=== PATIENT | female | born 1980 | race Caucasian/White ===

== ENCOUNTER 2018-02-09 08:36 | Emergency (ER) | payer MEDICAID, SELFPAY ==
[2018-02-09 08:37] VITALS: BP 152/103; PULSE 74; RESP 16; TEMP 36.6; O2SAT 97; BMI 35.4
--- NOTE | 2018-02-09 08:49 | CT_ITS ---
STUDY: CT ABDOMEN AND PELVIS WITHOUT CONTRAST REASON FOR EXAM: Female, 37 years old. Bilateral flank pain. RADIATION DOSAGE (If Supplied By Facility): CTDIvol = ( 20.12 ) mGy, DLP = ( 1055.41 ) mGycm TECHNIQUE: Transaxial images were obtained from the dome of the diaphragm to the symphysis pubis without oral contrast, and without intravenous contrast. Sagittal and coronal images were reconstructed. Individualized dose optimization techniques were used for this CT. COMPARISON: Comparison is made with prior study dated July 05, 2017. FINDINGS: The visualized lung bases are unremarkable. The visualized portions of the heart are within normal limits. Stable 2.6 cm hypodensity in the peripheral aspect of the inferior portion of the right lobe of the liver. There are surgical clips in the gallbladder fossa consistent with a prior cholecystectomy. Normal spleen. Normal pancreas. Normal bilateral adrenal glands. Once again, there is evidence of bilateral medullary nephrocalcinosis of both kidneys. No obstructive uropathy is seen. Normal visualized stomach. Normal small intestine. Normal colon. The appendix is visualized and appears normal. Normal abdominal aorta. Normal inferior vena cava. Normal retroperitoneum. Normal urinary bladder. There is evidence of bilateral tubal ligation. Normal abdominal wall. Disc space narrowing and degeneration at the L5-S1 level. CT/Abdomen/Pelvis without Cont IMPRESSION: Stable bilateral medullary nephrocalcinosis of both kidneys. No obstructive uropathy is seen at this time. Electronically Signed: Vu Angeles MD at 11:25 EDT Tel [phone], Service support ,
[2018-02-09 09:29] LABS: Absolute Lymphocyte Count 0.74 X10^3/ul (0.83-4.51); Absolute Neutrophil Count 1.9 X10^3/uL (2.0-7.7); Basophil# 0.02 X10^3/uL; Basophil% 0.7 % (0-1); Eosinophil# 0.02 X10^3/uL; Eosinophils% 0.7 % (0-5); Hemoglobin 14.1 g/dl (12.0-15.0); Lymphocyte # 0.74 X10^3/ul (4.0); Lymphocyte % 25.3 % (19-41); Mean Corp Hgb Conc 34.4 g/gl (32-36); Mean Corpuscular Hgb 29.6 pg (27.0-32.0); Mean Platelet Vol. 9.5 fl (6.2-12.0); Monocyte# 0.26 X10^3/uL; Monocyte% 8.9 % (0-10); Neutrophil # 1.88 X10^3/uL (2.7-7.7); Neutrophil % 64.4 % (47-70); POSITIVE COUNT NO; POSITIVE DIFFERENTIAL NO; POSITIVE MORPHOLOGY NO; Platelet Count 187 K/mm3 (150-450); RBC Distribution Width CV 12.5 % (11.6-14.6); RBC Distribution Width SD 39.7 fl (35.1-43.9); Red Blood Count 4.77 M/mm3 (4.2-5.4); White Blood Count 2.9 K/mm3 (4.4-11.0)
[2018-02-09] MEDS: 0.9% Normal Saline 1,000 ML 125 ML IV (09:29)
[2018-02-09] MEDS: Ketorolac 30 MG/ML Syringe IV (09:30)
[2018-02-09 09:40] LABS: Anion Gap 6 (5-15); BUN 12 mg/dL (7-18); BUN/Creat Ratio 14.5 RATIO (10-20); Calcium,Total 8.9 mg/dL (8.5-10.1); Chloride 107 mmol/L (98-107); Creatinine, Serum 0.83 mg/dL (0.55-1.02); EST Glomerular Filtration Rate 83 mL/min (>60); Est Glom Filt Rate - Afr Amer 101 mL/min (>60); Estimated Creatinine Clearance 74.82 ml/min; Glucose 98 mg/dL (74-106); Potassium 3.7 mmol/L (3.5-5.1); Sodium Level 140 mmol/L (136-145)
[2018-02-09 09:57] LABS: Pregnancy, Serum, hCG Quali. NEGATIVE Negative (0-9 Nonpreg)
[2018-02-09 10:27] LABS: Mucous, Urine 0 SEEN /hpf (<or=2+); White Blood Cells 0 SEEN /hpf (0-5)
[2018-02-09 10:28] LABS: Color, Urine Yellow (Yellow); Glucose, Dipstick Normal (Normal); Ketone-Dipstick Negative (Negative); Leukocyte Esterase-Dipstick Negative /ul (Negative); Nitrite-Dipstick Negative (Negative); Occult Blood-Urine 25 /ul (Negative); Protein-Dipstick Negative (Negative); Specific Gravity, Urine 1.015 (1.002-1.030); Urine Bilirubin Dipstick Negative (Negative); Urine Clarity Sl. Cloudy (Clear); Urine Urobilinogen Normal (Normal)
[2018-02-09 10:34] LABS: Bacteria 1+ /hpf (None Seen); Red Blood Cells-Urine 0-5 SEEN /hpf (0-5); Squamous Epithelial Cells - UA 0-5 SEEN /hpf (5-10)
--- NOTE | 2018-02-09 10:46 | ED.VISSUMM ---
- ER Visit Summary Date of Service: 02/09/18 Chief Complaint: [Right flank pain] History of Present Illness: The patient is a 37 F [presents the emergency department with right-sided flank pain that started yesterday. Patient rates her pain a 7 out of 10. Patient's had nausea but no vomiting. Patient also has had 12 loose stools a day. Patient has any abdominal pain. Patient denies urinary symptoms. She denies fever. She denies hematuria. Patient has a history of medullary sponge kidney. Patient's had prior kidney stones.] Physical Examination: [HEENT-PERRLA, EOMI. Cranial nerves II through XII grossly intact. TMs clear. Mucous membranes moist. No adenopathy. Cardiovascular-regular rate and rhythm without murmur or ectopy Lungs-clear to auscultation, chest wall stable without crepitus or subcu emphysema Abdomen-normoactive bowel sounds, soft, nontender, no rebound or rigidity, no peritoneal signs. She does have CVA tenderness on the right. Extremities-intact ?4, normal range of motion, normal pulses, atraumatic] Test Results: [CBC with differential obtained showed a white blood cell count of 2.9, hemoglobin 14, hematocrit 41, platelet 187. Chemistries unremarkable. Urinalysis was unremarkable. HCG was negative. CT flank obtained read by myself as a right proximal ureteral stone however awaiting official radiology report.] Emergency Department Course and Treatment: [Patient was medicated with Toradol 30 mg IV and had some improvement in her pain here.] Treatment Plan: [Patient will be given a prescription for Naprosyn, Bradley, and urine strainers. Patient will be given a referral to urology for follow-up.] Disposition: [Discharged home in stable condition. Patient advised to return if worsening pain, fever, vomiting, or condition should worsen in any way] Impression: [Kidney stone with colic] This note was generated with [employer] dictation software. It may contain incorrect words, spelling, and punctuation that were not noted in review of the chart prior to signing ED Disposition - Plan for ED Patient: Chief Complaint: Flank Pain Referrals: Vasile Casiano MD [Primary Care Provider] -
--- NOTE | 2018-02-09 10:49 | ED.DEP ---
ED Disposition - Plan for ED Patient: Chief Complaint: Flank Pain Instructions: ED Stone Renal W Colic Prescriptions: Hydrocodone/Acetaminophen [[place] 5-325 Tablet] 1 - 2 ea PO 4X/DAY PRN PRN 5 Days #20 tab PRN Reason: Pain Naproxen [Naprosyn] 500 mg PO BID PRN #20 tab Referrals: Vasile Casiano MD [Primary Care Provider] - Derek Parikh MD [STAFF PHYSICIAN] - 3-5 Days
[2018-02-09 11:13] VITALS: BP 142/74; PULSE 83; RESP 16; O2SAT 100
[2018-02-09 12:07] VITALS: BP 124/79; PULSE 81; RESP 16; O2SAT 100
--- NOTE | 2018-02-09 12:07 | ED.RN ---
THIS NURSE REVIEWED D/C INSTRUCTIONS WITH PT. PT VERBALIZED UNDERSTANDING OF INSTRUCTIONS. IV D/C. IV CATHETER INTACT. PT TOLERATED WELL. PT DENIES FURTHER NEEDS OR QUESTIONS AT THIS TIME
== END 2018-02-09 12:08 | disposition home or self-care (01) ==
PROVIDERS: Emergency Provider Emergency Medicine; Family Provider Family Medicine; PCP Family Medicine
DX: E83.59 Other disorders of calcium metabolism (principal); N29 Other disorders of kidney and ureter in diseases classified elsewhere; Z72.0 Tobacco use; Q61.5 Medullary cystic kidney; Z87.442 Personal history of urinary calculi; Z90.49 Acquired absence of other specified parts of digestive tract
CPT/HCPCS: 74176; 80048; 81001; 84703; 85025; 99283; A4216

== ENCOUNTER 2018-04-04 11:45 | Emergency (ER) | payer MEDICAID, SELFPAY ==
[2018-04-04 11:46] VITALS: BP 145/86; PULSE 81; RESP 15; TEMP 36.9; O2SAT 97; BMI 33.8
--- NOTE | 2018-04-04 12:04 | RAD_ITS ---
STUDY: X-RAY - RIGHT FOOT CLINICAL: Female, 37 years old. Right foot pain. No known injury. TECHNIQUE: 3 view(s) of the foot. COMPARISON: None. FINDINGS: Normal talus, calcaneus, and tarsal bones. Normal visualized subtalar, talonavicular, calcaneocuboid, tarsal and tarsometatarsal articulations. Normal metatarsi. Normal metatarsophalangeal joint of the great toe. Normal tibial and fibular sesamoid bones. Normal interphalangeal joint of the great toe. Normal phalanges of the great toe. Normal second through fifth metatarsophalangeal joints. Normal interphalangeal joints and phalanges of the lesser toes. The soft tissue structures are unremarkable. RAD/Foot min 3 Views IMPRESSION: Normal x-ray examination of the foot. Electronically Signed: Vu Angeles MD at 12:36 EDT Tel [phone], Service support ,
[2018-04-04] MEDS: Naproxen 500 MG Tablet PO (12:12)
--- NOTE | 2018-04-04 12:46 | ED.DCSUM_ITS ---
- ER Visit Summary Date of Service: 04/04/18 Chief Complaint: Right foot pain History of Present Illness: The patient is a [address] Chino and a family service caseworker who name she does not remember. She reports that she has very high arches. States she has pain in her right foot that began today. She denies any trauma. No fall, MVA, change in activity, or new shoes. Patient reports that it is a sharp pain Zeta 10 with walking 7 out of 10 at rest. She has not taken anything for pain. Physical Examination: Vitals: Stable. Afebrile. General: Well-nourished and well-developed. Head: Normocephalic atraumatic. Neck: Supple, no lymphadenopathy. No JVD. Nontender. Cardiovascular: Regular rate and rhythm. No murmurs. Respiratory: No respiratory distress. Clear to auscultation bilaterally. Abdominal: Soft, nontender, nondistended, normal bowel sounds. No guarding, rebound, or peritoneal signs. Back: Nontender. Extremities: Mild tenderness palpation to the arch of her right foot, no edema. No contusion. 2+ dorsalis pedis pulse. Skin: Normal color, no rash. Neurologic: Alert and oriented ?3. Cranial nerves II through XII are intact. Normal strength and sensation. Psych: Normal affect. Test Results: X-ray is normal Emergency Department Course and Treatment: Patient was treated with naproxen and is resting comfortably. Treatment Plan: Patient will be discharged naproxen's. Crutches to use as needed. Follow-up with her family service caseworker in 1 week if not improving. Disposition: To home in improved and stable condition. Impression: 1. Right foot pain, acute. This note was generated with [employer] dictation software. It may contain incorrect words, spelling, and punctuation that were not noted in review of the chart prior to signing ED Disposition - Plan for ED Patient: Disposition: Home or Assisted Living Chief Complaint: Lower Extremity Injury Instructions: ED Sprain Foot Prescriptions: Naproxen [Naprosyn] 500 mg PO BID #14 tablet Additional Instructions: Follow up with your Hat Cutter in 1 week if not improving.
== END 2018-04-04 12:53 | disposition home or self-care (01) ==
LOC: ED 12:05
PROVIDERS: Emergency Provider Emergency Medicine; Family Provider Family Medicine; PCP Family Medicine
DX: M79.671 Pain in right foot (principal); F17.210 Nicotine dependence, cigarettes, uncomplicated
CPT/HCPCS: 73630; 99283

== ENCOUNTER 2018-11-28 15:21 | Emergency (ER) | payer OTHER, MEDICAID, SELFPAY ==
[2018-11-28 15:21] VITALS: BP 153/92; PULSE 73; RESP 18; TEMP 36.7; O2SAT 98; BMI 37.0
--- NOTE | 2018-11-28 15:50 | CT_ITS ---
STUDY: CT ABDOMEN AND PELVIS WITHOUT CONTRAST REASON FOR EXAM: Female, 37 years old. Pain. Medullary sponge kidney. RADIATION DOSAGE (If Supplied By Facility): CTDIvol = ( 21.56 ) mGy, DLP = ( 1050.45 ) mGycm TECHNIQUE: Transaxial images were obtained from the dome of the diaphragm to the symphysis pubis without oral contrast, and without intravenous contrast. Sagittal and coronal images were reconstructed. Individualized dose optimization techniques were used for this CT. COMPARISON: 05/31/2017, 02/09/2018.. FINDINGS: The visualized lung bases are unremarkable. The visualized portions of the heart are within normal limits. There is fatty infiltration of the liver. There is moderate hepatomegaly. There is a 3.6 cm very subtle and vague low-attenuation structure in the periphery of the right lobe of the liver, which is increasing size since previous exams and needs further evaluation with contrast CT. There are surgical clips in the gallbladder fossa consistent with a prior cholecystectomy. Normal spleen. Normal pancreas. Normal bilateral adrenal glands. There are no acute abnormalities of the kidneys. Severe bilateral nephrocalcinosis of the renal pyramids bilaterally, stable. No obstructing stones are seen. No hydronephrosis. No masses. Evaluation of the GI tract is limited by absence of oral contrast. Cannot exclude stomach wall thickening. No dilated loops of bowel or evidence for obstruction. Cannot exclude segmental thickening of the carrasquillo of the small or large bowel. Cannot exclude enteritis or colitis. Moderate diffuse fecal retention. Appendix within normal limits. Normal abdominal aorta. Normal inferior vena cava. Normal retroperitoneum. Normal urinary bladder. Normal visualized uterus. Normal abdominal wall. Degenerative disc disease seen at L5-S1, otherwise normal osseous structures. CT/Abdomen/Pelvis without Cont IMPRESSION: Increasing size of a subtle low density structure in the right hepatic lobe. Further evaluation with contrasted CT recommended. Very severe and diffuse bilateral nephrocalcinosis of the kidneys, stable with no evidence for obstructing stone. Electronically Signed: Shree Denny MD at 17:23 EST , Service support ,
--- NOTE | 2018-11-28 15:53 | ED.DCSUM_ITS ---
- ER Visit Summary Date of Service: 11/28/18 Chief Complaint: Abdominal pain History of Present Illness: The patient is a 37 F who presents with abdominal pain that has been getting worse over the last week. Patient describes the pain is sharp, stabbing, and burning. Patient states the pain is worse with sitting and bending forward. Patient states the pain is diffuse across her abdomen. Patient states pain has been constant. Patient admits to some nausea but denies any vomiting. Patient denies any dysuria or hematuria. Patient states her last menstrual period was 1 week ago and was normal. Physical Examination: Vital signs are stable. Patient is afebrile. Patient is in no acute distress. Oral mucosa is pink and moist. Neck is supple. Trachea is midline. There is no JVD noted. Heart was regular rate and rhythm. Lungs are clear and equal bilateral. Abdomen is soft. Bowel sounds are normal. There is diffuse tenderness. There is no rebound or guarding noted. Skin is warm dry. Cranial nerves II through XII are intact. There are no focal motor or sensory deficits noted. The remaining physical exam is within normal limits. Test Results: CBC, comprehensive metabolic profile were obtained and were within normal limits. CT scan of the abdomen and pelvis was obtained. There is no ureteral calculus. There is a low-density structure in the right hepatic lobe which may need follow-up. Emergency Department Course and Treatment: Patient was given IV fluids and Toradol here. Patient was advised that she does not require surgery or admission to the hospital. Patient was instructed to follow-up with her primary care physician in 5-7 days for further evaluation. Patient understood and was agreeable with the plan. All questions were answered. Disposition: Discharge home Impression: Abdominal pain This note was generated with [employer] dictation software. It may contain incorrect words, spelling, and punctuation that were not noted in review of the chart prior to signing ED Disposition - Plan for ED Patient: Disposition: Home or Assisted Living Diagnosis: Abdominal pain Instructions: ED Abdominal Pain Unkn Cause Referrals: Vasile Casiano MD [Primary Care Provider] -
[2018-11-28] MEDS: 0.9% Normal Saline 1,000 ML 1000 ML IV (15:59)
[2018-11-28 16:06] LABS: Absolute Lymphocyte Count 2.26 X10^3/ul (0.83-4.51); Absolute Neutrophil Count 4.2 X10^3/uL (2.0-7.7); Basophil# 0.03 X10^3/uL; Basophil% 0.4 % (0-1); Eosinophil# 0.11 X10^3/uL; Eosinophils% 1.5 % (0-5); Hemoglobin 13.5 g/dl (12.0-15.0); Lymphocyte # 2.26 X10^3/ul (4.0); Lymphocyte % 31.8 % (19-41); Mean Corp Hgb Conc 34.6 g/gl (32-36); Mean Corpuscular Volume 89.7 fL (81-99); Mean Platelet Vol. 9.8 fl (6.2-12.0); Neutrophil # 4.21 X10^3/uL (2.7-7.7); Neutrophil % 59.3 % (47-70); Platelet Count 258 K/mm3 (150-450); RBC Distribution Width CV 12.2 % (11.6-14.6); RBC Distribution Width SD 39.7 fl (35.1-43.9); Red Blood Count 4.35 M/mm3 (4.2-5.4); White Blood Count 7.1 K/mm3 (4.4-11.0)
[2018-11-28 16:10] LABS: POSITIVE COUNT NO; POSITIVE DIFFERENTIAL NO; POSITIVE MORPHOLOGY NO
[2018-11-28 16:25] LABS: Bacteria 0 SEEN /hpf (None Seen); Mucous, Urine 0 SEEN /hpf (<or=2+); Red Blood Cells-Urine 0 SEEN /hpf (0-5)
[2018-11-28 16:27] LABS: ALB/GLOB Ratio 1.2 RATIO (0.9-2.4); AST(SGOT) 14 U/L (15-37); Alanine Aminotransfer ALT/SGPT 22 U/L (13-56); Albumin, Serum 3.9 g/dL (3.2-5.0); Alkaline Phosphatase 40 U/L (45-117); Anion Gap 10 (5-15); BUN 20 mg/dL (7-18); BUN/Creat Ratio 24.2 RATIO (10-20); Calcium,Total 8.9 mg/dL (8.5-10.1); Chloride 105 mmol/L (98-107); Creatinine, Serum 0.82 mg/dL (0.55-1.02); EST Glomerular Filtration Rate 83 mL/min (>60); Est Glom Filt Rate - Afr Amer 101 mL/min (>60); Estimated Creatinine Clearance 75.74 ml/min; Globulin 3.2 g/dL (2.2-4.2); Glucose 102 mg/dL (74-106); Lipase 163 U/L (73-393); Potassium 3.7 mmol/L (3.5-5.1); Protein, Total 7.1 g/dL (6.4-8.2); Sodium Level 143 mmol/L (136-145)
[2018-11-28 16:33] LABS: Color, Urine Yellow (Yellow); Glucose, Dipstick Normal (Normal); Ketone-Dipstick Negative (Negative); Leukocyte Esterase-Dipstick Negative /ul (Negative); Nitrite-Dipstick Negative (Negative); Occult Blood-Urine Negative /ul (Negative); Protein-Dipstick Negative (Negative); Specific Gravity, Urine 1.015 (1.002-1.030); Urine Bilirubin Dipstick Negative (Negative); Urine Clarity Clear (Clear); Urine Urobilinogen Normal (Normal); Urine pH 6.5 (5.0 - 8.0)
[2018-11-28] MEDS: Ketorolac 30 MG/ML Syringe IV (16:34)
[2018-11-28 16:38] LABS: Internal QC Validated? YES +Cl - CLEAR BKGD; Pregnancy, Urine Negative Negative
[2018-11-28 16:44] LABS: Squamous Epithelial Cells - UA 0-5 SEEN /hpf (5-10); White Blood Cells 0-5 SEEN /hpf (0-5)
[2018-11-28 17:42] VITALS: BP 132/80; PULSE 62; RESP 16; O2SAT 99
== END 2018-11-28 18:37 | disposition home or self-care (01) ==
PROVIDERS: Emergency Provider Emergency Medicine; Family Provider Family Medicine; PCP Family Medicine
DX: R10.9 Unspecified abdominal pain (principal); R11.0 Nausea; Q61.5 Medullary cystic kidney
CPT/HCPCS: 74176; 80053; 81001; 81025; 83690; 85025; 99284; J7030

== ENCOUNTER 2019-06-27 10:26 | Emergency (ER) | payer OTHER, MEDICAID, SELFPAY ==
[2019-06-27 10:27] VITALS: BP 137/76; PULSE 53; RESP 14; TEMP 36.3; O2SAT 98; BMI 37.4
--- NOTE | 2019-06-27 10:48 | RAD_ITS ---
STUDY: X-RAY - ABDOMEN/PELVIS REASON FOR EXAM: Female, 38 years old. Several day history of abdominal pain and nausea. TECHNIQUE: Single AP view of the abdomen / pelvis. COMPARISON: None. FINDINGS: Normal visualized lung bases. There is a moderate amount of colonic fecal material. The patient is status post cholecystectomy as well as bilateral tubal ligation. The visualized liver, spleen and kidneys are grossly normal in size and morphology. There are calcified phleboliths in the pelvis. Normal visualized osseous structures. RAD/Abdomen Single View IMPRESSION: Moderate amount of fecal material is seen in the colon. Electronically Signed: Vu Angeles, at 12:37 EDT , Service support ,
[2019-06-27] MEDS: Ketorolac 30 MG/ML Syringe IV (11:32)
[2019-06-27 11:41] LABS: Bacteria 0 SEEN /hpf (None Seen); Mucous, Urine 0 SEEN /hpf (<or=2+); Red Blood Cells-Urine 0 SEEN /hpf (0-5); White Blood Cells 0 SEEN /hpf (0-5)
[2019-06-27 11:45] LABS: Color, Urine Yellow (Yellow); Glucose, Dipstick Normal (Normal); Ketone-Dipstick Negative (Negative); Leukocyte Esterase-Dipstick Negative /ul (Negative); Nitrite-Dipstick Negative (Negative); Occult Blood-Urine Negative /ul (Negative); Protein-Dipstick Negative (Negative); Urine Bilirubin Dipstick Negative (Negative); Urine Clarity Clear (Clear); Urine Urobilinogen Normal (Normal)
[2019-06-27 11:48] LABS: Absolute Lymphocyte Count 1.87 X10^3/uL (0.83-4.51); Absolute Neutrophil Count 4.3 X10^3/uL (2.0-7.7); Basophil# 0.05 X10^3/uL; Basophil% 0.7 % (0-1); Eosinophil# 0.16 X10^3/uL; Eosinophils% 2.3 % (0-5); Hematocrit 41.4 % (37-47); Hemoglobin 14.3 g/dL (12.0-15.0); Lymphocyte # 1.87 X10^3/ul (4.0); Lymphocyte % 27.1 % (19-41); Mean Corp Hgb Conc 34.5 g/dL (32-36); Mean Corpuscular Hgb 30.1 pg (27.0-32.0); Mean Corpuscular Volume 87.2 fL (81-99); Monocyte# 0.51 X10^3/uL; Monocyte% 7.4 % (0-10); NRBC Flagged by Analyzer 0 % (0-5); Neutrophil % 62.2 % (47-70); Platelet Count 246 K/mm3 (150-450); RBC Distribution Width CV 11.8 % (11.6-14.6); RBC Distribution Width SD 37.8 fl (35.1-43.9); Red Blood Count 4.75 M/mm3 (4.2-5.4); White Blood Count 6.9 K/mm3 (4.4-11.0)
[2019-06-27 11:49] VITALS: BP 128/77; PULSE 53; RESP 16; O2SAT 98
[2019-06-27 11:50] LABS: Internal QC Validated? YES +Cl - CLEAR BKGD; Pregnancy, Serum, hCG Quali. NEGATIVE Negative
[2019-06-27 11:54] LABS: Squamous Epithelial Cells - UA 0-5 SEEN /hpf (5-10)
[2019-06-27 11:58] LABS: AST(SGOT) 8 U/L (15-37); Alanine Aminotransfer ALT/SGPT 14 U/L (13-56); Albumin, Serum 3.8 g/dL (3.2-5.0); Alkaline Phosphatase 44 U/L (45-117); Anion Gap 5 (5-15); BUN 17 mg/dL (7-18); BUN/Creat Ratio 20.2 RATIO (10-20); Bilirubin, Direct 0.07 mg/dL (0.00-0.30); Chloride 105 mmol/L (98-107); Creatinine, Serum 0.84 mg/dL (0.55-1.02); EST Glomerular Filtration Rate 81 mL/min (>60); Est Glom Filt Rate - Afr Amer 98 mL/min (>60); Estimated Creatinine Clearance 73.23 ml/min; Globulin 3.4 g/dL (2.2-4.2); Glucose 94 mg/dL (74-106); Lipase 199 U/L (73-393); Potassium 4.1 mmol/L (3.5-5.1); Protein, Total 7.2 g/dL (6.4-8.2); Sodium Level 139 mmol/L (136-145)
--- NOTE | 2019-06-27 13:18 | ED.VISSUMM ---
- ER Visit Summary Date of Service: 06/27/19 Chief Complaint: Suprapubic abdominal pain History of Present Illness: The patient is a 38 F cholecystectomy, , tubal ligation and umbilical hernia repair. He has a history of prior kidney stones. Patient states that for 1 month she is had abdominal pain at times it waxes and wanes. Been worse in the last 2 days. She denies any fever. She has had nausea and constipation. No dysuria. No vaginal bleeding or discharge. Her last menstrual period was just over a week ago. Physical Examination: Young female no acute distress. Vital signs are stable afebrile. Coming by her significant other. HEENT exam unremarkable. Neck nontender no lymphadenopathy. Lungs clear to auscultation bilaterally. Heart regular rhythm no murmur. Abdomen is soft nondistended normal bowel sounds no peritoneal signs. Both the right upper right lower quadrant unremarkable. She complains of very mild discomfort in the suprapubic region. There is no obvious hernias or masses. No signs of obstruction. No signs of appendicitis. No signs of trauma. Normal bowel sounds. No abdominal wall trauma. Patient is moving all 4 extremities. Neurovascular intact. Back is nontender. Neurologically she is awake alert with no focal motor deficits. Test Results: CBC normal white count of 6. Normal hemoglobin 14. Chemistries normal normal creatinine and gap. Liver enzymes normal. Lipase normal. UA normal. No blood or signs of infection. Serum test negative. Plain KUB showed increasing stool but otherwise no acute abnormality. No obstruction. No free air. Read both by the radiologist and myself. Emergency Department Course and Treatment: Repeat exam patient is doing well at 1317 p.m. Abdomen is benign. I went over all test results with her and her significant other. She is frustrated because she does not have a diagnosis for her pain. I explained her all her tests were normal. She has a CAT scan ordered for Tuesday. She has had 5 CAT scans in the last 2-1/2 years old which have been basically unremarkable. I do not feel she needs that type of imaging today. Treatment Plan: Tylenol and Motrin for pain. Fiber. Fluids. Follow-up with her doctor. Disposition: Discharge Impression: Abdominal pain uncertain etiology Constipation This note was generated with [employer] software. It may contain incorrect words, spelling, and punctuation that were not noted in review of the chart prior to signing ED Disposition - Plan for ED Patient: Referrals: Vasile Casiano MD [Primary Care Provider] -
--- NOTE | 2019-06-27 13:21 | ED.DEP ---
ED Disposition - Plan for ED Patient: Disposition: Home or Assisted Living Instructions: ABDOMINAL PAIN, Unknown Cause, (Female), CONSTIPATION (Adult) Referrals: Vasile Casiano MD [Primary Care Provider] - 3-5 Days if not improving Additional Instructions: Plenty fluids and rest. Fiber to help you have regular bowel movements. Follow-up with your doctor if not improving and with your outpatient imaging you already have scheduled. Return if feeling worse. All your labs today were unremarkable.
[2019-06-27 13:28] VITALS: BP 138/92; PULSE 71; RESP 16; O2SAT 97
== END 2019-06-27 13:29 | disposition home or self-care (01) ==
PROVIDERS: Emergency Provider Emergency Medicine; Family Provider Family Medicine; PCP Family Medicine
DX: K59.00 Constipation, unspecified (principal); R10.9 Unspecified abdominal pain; Z87.442 Personal history of urinary calculi; Z90.49 Acquired absence of other specified parts of digestive tract; Z87.891 Personal history of nicotine dependence
CPT/HCPCS: 74018; 80048; 80076; 81001; 83690; 84703; 85025; 99283; A4216

== ENCOUNTER 2019-07-15 13:43 | Emergency (ER) | payer OTHER, MEDICAID, SELFPAY ==
[2019-07-15 13:45] VITALS: BP 145/97; PULSE 105; RESP 14; TEMP 36.4; O2SAT 97; BMI 36.6
--- NOTE | 2019-07-15 13:57 | CT_ITS ---
STUDY: CT SOFT TISSUE NECK WITH CONTRAST REASON FOR EXAM: Female, 38 years old. Sore throat RADIATION DOSAGE (If Supplied By Facility): CTDIvol = ( 20.77 ) mGy, DLP = ( 606.77 ) mGycm TECHNIQUE: The patient was scanned in a multi-detector CT scanner. High resolution transaxial imaging was performed following intravenous administration of IV Isovue 300 100. Sagittal and coronal images were reconstructed. Individualized dose optimization techniques were used for this CT. COMPARISON: None. FINDINGS: The lung apices are clear. There is bilateral cervical lymphadenopathy with the largest node measuring 2.1 x 1.7 cm and the left jugular digastric region. The tonsils are enlarged and heterogeneous, consistent with tonsillitis. There is no fluid collection. The parotid and submandibular glands are within normal limits. There is mucosal hypertrophy in the bilateral maxillary sinuses. The paranasal sinuses and mastoid air cells are otherwise clear. The visualized intracranial structures are grossly unremarkable. There are no destructive osseous lesions. CT/Soft Tissue Neck WITH Contrast IMPRESSION: Enlarged, heterogeneous tonsils, consistent with tonsillitis. No fluid collection. Bilateral cervical lymphadenopathy. Bilateral maxillary sinusitis. Electronically Signed: Olman Varela, at 15:04 EDT Tel , Service support ,
--- NOTE | 2019-07-15 13:58 | ED.DCSUM_ITS ---
History of Present Illness Chief Complaint: Sore Throat Informant: Patient Onset: Days Current Severity: Moderate Maximum Severity: Moderate Narrative: Patient presents with sore throat for the past 5 days. She went to the urgent care 3 days ago. Rapid strep was negative and culture is still pending. She was initially having pain on the left side of her neck. Over the past 1 or 2 days pain is now moved to the right as well. Left-sided neck pain now extends down near the clavicle. She went back to urgent care today where she was told it looks like she has an abscess and was sent to the emergency room. She is tolerating secretions. She has had decreased p.o. intake secondary to pain when swallowing. T-max at home was 100.8. She denies any ill contacts at home. Past Medical History - Allergies and Home Meds Allergies/Adverse Reactions: Allergies morphine Allergy (Verified 07/15/19 13:45) Itching TREE NUTS Allergy (Uncoded 07/15/19 13:45) Unknown Primary Care Physician: Vasile Casiano MD [Primary Care Provider] - Prior records reviewed: Yes Past Medical History: - - Reviewed Lives: With Family Smoking Status: Current some day smoker Review of Systems General: Reports: Fever Eyes: Denies: Visual changes - bilaterally ENT: Reports: Sore throat Cardiovascular: Denies: Chest pain Respiratory: Reports: Cough - Mild cough. Denies: Dyspnea Gastrointestinal: Denies: Abdominal pain, Nausea, Vomiting, Diarrhea Genitourinary: Denies: Dysuria Musculoskeletal: Reports: Myalgias Skin: Denies: Rash Neurological: Denies: Headache Physical Exam Vital Signs/Narrative: Vital Signs Temp Pulse Resp BP Pulse Ox 07/15/19 13:45 97.5 F L 105 H 14 145/97 H 97 Inital Vital Signs reviewed: Yes General: Well nourished, Well developed, - - Speaks with strong voice. Tolerating secretions. Head: Normocephalic ENT: Moist mucous membranes, TM's clear, - - 3+ tonsils with exudate, left greater than right. Uvula is midline. Neck: Supple, - - Bilateral cervical lymphadenopathy, left greater than right. Cardiovascular: Regular rate, Regular rhythm Respiratory: No distress, CTA bilaterally Abdomen: Soft, Nontender Back: Nontender Extremities: Nontender Skin: Normal color Neurological: Alert, Oriented x3 Psychological: Normal affect Diagnostic/Tx/Re-eval Impressions Soft Tissue Neck CT 07/15/19 13:57 IMPRESSION: Enlarged, heterogeneous tonsils, consistent with tonsillitis. No fluid collection. Bilateral cervical lymphadenopathy. Bilateral maxillary sinusitis. Electronically Signed: Olman Varela, at 15:04 EDT Tel , Service support , 07/15/19 13:57 CT Neck [Soft Tissue Neck WITH Contrast] [CT] Stat Laboratory Results 07/15/19 07/15/19 14:17 14:17 WBC 8.9 RBC 4.66 Hgb 13.9 Hct 40.4 MCV 86.7 MCH 29.8 MCHC 34.4 RDW Std Deviation 38.1 RDW Coeff of Diana 11.8 Plt Count 206 MPV 10.0 Immature Gran % (Auto) 0.200 Neut % (Auto) 75.3 H Lymph % (Auto) 13.6 L [place] % (Auto) 10.2 H Eos % (Auto) 0.3 Baso % (Auto) 0.4 Absolute Neuts (auto) 6.7 Absolute Lymphs (auto) 1.21 Nucleated RBC % 0 Sodium 138 Potassium 3.8 Chloride 105 Carbon Dioxide 25.0 Anion Gap 8 BUN 11 Creatinine 0.86 Estim Creat Clear Calc 71.53 Est GFR (MDRD) Af Amer 95 Est GFR (MDRD) Non-Af 79 BUN/Creatinine Ratio 12.7 Glucose 129 H Calcium 9.0 - Medical Decision Making Patient was given Toradol and IV fluids while here. On repeat evaluation she is resting comfortably. Test results are discussed with her. She will be given a one-time dose of Solu-Medrol here to help with inflammation and pain. She will be given a prescription for amoxicillin, first dose given here. ED Disposition - Plan for ED Patient: Disposition: Home or Assisted Living Diagnosis: Tonsillitis, Pharyngitis Instructions: PHARYNGITIS, Strep (Presumed) Prescriptions: Amoxicillin 875 mg PO BID #10 days Referrals: Vasile Casiano MD [Primary Care Provider] - 1 Week Vasile Wheat MD [STAFF PHYSICIAN] - As Needed
[2019-07-15] MEDS: Ketorolac 30 MG/ML Syringe IV (14:26)
[2019-07-15] MEDS: 0.9% Normal Saline 1,000 ML 1000 ML IV (14:26)
[2019-07-15 14:27] LABS: Absolute Lymphocyte Count 1.21 X10^3/uL (0.83-4.51); Absolute Neutrophil Count 6.7 X10^3/uL (2.0-7.7); Basophil# 0.04 X10^3/uL; Basophil% 0.4 % (0-1); Eosinophil# 0.03 X10^3/uL; Eosinophils% 0.3 % (0-5); Hematocrit 40.4 % (37-47); Hemoglobin 13.9 g/dL (12.0-15.0); Lymphocyte # 1.21 X10^3/ul (4.0); Lymphocyte % 13.6 % (19-41); Mean Corp Hgb Conc 34.4 g/dL (32-36); Mean Corpuscular Hgb 29.8 pg (27.0-32.0); Mean Corpuscular Volume 86.7 fL (81-99); Monocyte# 0.91 X10^3/uL; Monocyte% 10.2 % (0-10); NRBC Flagged by Analyzer 0 % (0-5); Neutrophil # 6.71 X10^3/uL (2.7-7.7); Neutrophil % 75.3 % (47-70); Platelet Count 206 K/mm3 (150-450); RBC Distribution Width CV 11.8 % (11.6-14.6); RBC Distribution Width SD 38.1 fl (35.1-43.9); Red Blood Count 4.66 M/mm3 (4.2-5.4); White Blood Count 8.9 K/mm3 (4.4-11.0)
[2019-07-15 14:39] LABS: Anion Gap 8 (5-15); BUN 11 mg/dL (7-18); BUN/Creat Ratio 12.7 RATIO (10-20); Chloride 105 mmol/L (98-107); Creatinine, Serum 0.86 mg/dL (0.55-1.02); EST Glomerular Filtration Rate 79 mL/min (>60); Est Glom Filt Rate - Afr Amer 95 mL/min (>60); Estimated Creatinine Clearance 71.53 ml/min; Glucose 129 mg/dL (74-106); Potassium 3.8 mmol/L (3.5-5.1); Sodium Level 138 mmol/L (136-145)
[2019-07-15] MEDS: Amoxicillin 250 MG Capsule 750 MG PO (15:26)
[2019-07-15] MEDS: MethylPREDNISolone 125 MG/2 ML Vial 80 MG IV (15:26)
== END 2019-07-15 15:45 | disposition home or self-care (01) ==
PROVIDERS: Emergency Provider Emergency Medicine; Family Provider Family Medicine; PCP Family Medicine
DX: J03.90 Acute tonsillitis, unspecified (principal); J32.0 Chronic maxillary sinusitis; F17.200 Nicotine dependence, unspecified, uncomplicated
CPT/HCPCS: 70491; 80048; 85025; 96361; 96374; 96375; 99285; J7030; Q9967; A4216

== ENCOUNTER 2019-12-02 11:54 | Emergency (ER) | payer OTHER, MEDICAID, SELFPAY ==
[2019-12-02 11:56] VITALS: BP 139/83; PULSE 84; RESP 19; TEMP 36.2; O2SAT 99; BMI 36.1
--- NOTE | 2019-12-02 12:08 | ED.DCSUM_ITS ---
History of Present Illness Chief Complaint: Complaint Informant: Patient Onset: Days Context: Gradual Onset Current Severity: Moderate Maximum Severity: Severe Narrative: Patient presents with pain in her kidney area as well as bladder. She reports dysuria with frequency and urgency. She has not had fever or chills. She reports history of medullary sponge kidney and prior kidney stones. She also has a history of ovarian cyst. - Past Medical History (1) Ovarian cyst Status: Chronic (2) Back pain Status: Chronic (3) Kidney stone Status: Chronic (4) Medullary sponge kidney Status: Chronic (5) Hx of cholecystectomy Status: Chronic Past Medical History - Allergies and Home Meds Allergies/Adverse Reactions: Allergies morphine Allergy (Verified 12/02/19 11:58) Itching TREE NUTS Allergy (Uncoded 12/02/19 11:58) Unknown Primary Care Physician: Vasile Casiano MD [Primary Care Provider] - Prior records reviewed: Yes Surgical History: cholecystectomy Smoking Status: Current some day smoker Review of Systems General: Denies: Chills, Fever Eyes: Denies: Visual changes - bilaterally ENT: Denies: Bilateral ear pain Cardiovascular: Denies: Chest pain Respiratory: Denies: Dyspnea, Cough Gastrointestinal: Reports: Abdominal pain - Suprapubic. Denies: Nausea, Vomiting Genitourinary: Reports: Dysuria, Frequency Musculoskeletal: Reports: Back pain Skin: Denies: Rash Neurological: Denies: Headache Allergy: Denies: Uticaria Physical Exam Vital Signs/Narrative: Vital Signs Temp Pulse Resp BP Pulse Ox 12/02/19 11:56 97.2 F L 84 19 H 139/83 H 99 Inital Vital Signs reviewed: Yes General: Well nourished, Well developed Head: Normocephalic ENT: Moist mucous membranes Neck: Supple Cardiovascular: Regular rate, Regular rhythm Respiratory: No distress, CTA bilaterally Abdomen: Soft, Tender - Mild suprapubic tenderness., Hypoactive bowel sounds. Negative for: Guarding, Rebound tenderness Back: CVA tenderness Extremities: Nontender Skin: Normal color, No rash Neurological: Alert, Oriented x3 Psychological: Normal affect Diagnostic/Tx/Re-eval Impressions Abdomen/Pelvis CT 12/02/19 12:51 IMPRESSION: 1. 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 No evidence of hydronephrosis. 2. Liver lesion unchanged likely representing cyst. 3. No evidence for acute diverticulitis or appendicitis. 4. Probable uterine fibroid. Electronically Signed: Abdias Ramachandran MD at 13:47 EST Tel , Service support , 12/02/19 12:51 Abdomen/Pelvis without Cont [CT] Stat Laboratory Results 12/02/19 12/02/19 12:25 12:25 Urine Color Yellow Urine Clarity Clear Urine pH 7.0 Ur Specific [place] 1.005 Urine Protein Negative Urine Glucose (UA) Normal Urine Ketones Negative Urine Occult Blood Negative Urine Nitrite Negative Urine Bilirubin Negative Urine Urobilinogen Normal Ur Leukocyte Esterase 100 H Urine RBC 0 SEEN Urine WBC 0-5 SEEN Ur Squamous Epith Cells 0-5 SEEN Urine Bacteria RARE Urine Mucus 0 SEEN Urine Test Negative - Medical Decision Making Patient was given [facility] for pain. Bladder scan was also performed and showed 88 cc of urine noted. Test results are discussed with her. I am unsure why she is having so much flank pain. She does have calcinosis of the kidneys that appears unchanged from her prior study. There is no evidence of hydronephrosis. There is no evidence of a ovarian cyst, diverticulitis, or appendicitis. Patient be treated with 3 days of Bactrim and urine has been sent for culture. She will follow-up with her career technical education instructor. ED Disposition - Plan for ED Patient: Disposition: Home or Assisted Living Diagnosis: Flank pain Instructions: FLANK PAIN, Uncertain Cause Prescriptions: Smz/Tmp Ds [Bactrim Ds] 1 tab PO BID #6 tab Transmission Status: Pending to [facility] Hydrocodone Bitart/Apap 5-325 [[facility] 5MG-325MG] 1 tablet PO Q6H PRN PRN 3 Days #10 tablet PRN Reason: Pain Transmission Status: Sent to [facility] Referrals: Vasile Casiano MD [Primary Care Provider] - Additional Instructions: Follow-up with your career technical education instructor as discussed.
[2019-12-02] MEDS: HYDROcodone Bitartrate/Apap 5/325 Tablet PO (12:16)
[2019-12-02 12:29] LABS: Mucous, Urine 0 SEEN /hpf (<or=2+); Red Blood Cells-Urine 0 SEEN /hpf (0-5)
[2019-12-02 12:36] LABS: Color, Urine Yellow (Yellow); Glucose, Dipstick Normal (Normal); Ketone-Dipstick Negative (Negative); Leukocyte Esterase-Dipstick 100 /ul (Negative); Nitrite-Dipstick Negative (Negative); Occult Blood-Urine Negative /ul (Negative); Protein-Dipstick Negative (Negative); Specific Gravity, Urine 1.005 (1.002-1.030); Urine Bilirubin Dipstick Negative (Negative); Urine Clarity Clear (Clear); Urine Urobilinogen Normal (Normal)
[2019-12-02 12:48] LABS: Bacteria RARE /hpf (None Seen); Squamous Epithelial Cells - UA 0-5 SEEN /hpf (5-10); White Blood Cells 0-5 SEEN /hpf (0-5)
--- NOTE | 2019-12-02 12:51 | CT_ITS ---
STUDY: CT ABDOMEN AND PELVIS WITHOUT CONTRAST REASON FOR EXAM: Female, 38 years old. Bilateral flank pain and bladder spasms. History of medullary sponge kidneys. RADIATION DOSAGE (If Supplied By Facility): CTDIvol = ( 19.51 ) mGy, DLP = ( 989.55 ) mGycm TECHNIQUE: Transaxial images were obtained from the dome of the diaphragm to the symphysis pubis without oral contrast, and without intravenous contrast. Sagittal and coronal images were reconstructed. Individualized dose optimization techniques were used for this CT. COMPARISON: 22/03/2019. FINDINGS: The visualized lung bases are unremarkable. The visualized portions of the heart are within normal limits. There again is a low-density lesion in the lateral aspect of the posterior segment of the right lobe of the liver measuring about 4 cm unchanged in size since prior examination may represent cysts. Correlation with ultrasound might be of value. There are surgical clips in the gallbladder fossa consistent with a prior cholecystectomy. Normal spleen. Normal pancreas. Normal bilateral adrenal glands. Dense bilateral calcifications consistent with nephrocalcinosis and medullary sponge kidneys unchanged since prior exam. There is no evidence of hydronephrosis. Normal visualized stomach. Normal small intestine. The sigmoid colon is not well-distended. There is no evidence of acute diverticulitis. The appendix is visualized and appears normal. Normal abdominal aorta. Normal inferior vena cava. Normal retroperitoneum. Normal urinary bladder. Soft tissue density arising from the posterior wall of the uterus measuring about 2.8 cm is seen likely presenting pedunculated fibroid. There are metallic densities consistent with previous tubal ligation. Normal abdominal wall. There are degenerative changes in the lower lumbar spine at the level of L5-S1 with posterior degenerative spurs impinging on the thecal sac. CT/Abdomen/Pelvis without Cont IMPRESSION: 1. 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 No evidence of hydronephrosis. 2. Liver lesion unchanged likely representing cyst. 3. No evidence for acute diverticulitis or appendicitis. 4. Probable uterine fibroid. Electronically Signed: Abdias Ramachandran MD at 13:47 EST Tel , Service support ,
[2019-12-02 13:15] LABS: Internal QC Validated? YES +Cl - CLEAR BKGD; Pregnancy, Urine Negative Negative
[2019-12-02] MEDS: Smz/Tmp Ds Tablet 1 TABLET PO (14:24)
[2019-12-02 14:26] VITALS: BP 139/73; PULSE 67; RESP 18
== END 2019-12-02 14:26 | disposition home or self-care (01) ==
PROVIDERS: Emergency Provider Emergency Medicine; PCP Family Medicine
DX: R10.9 Unspecified abdominal pain (principal); R30.0 Dysuria; K76.9 Liver disease, unspecified; N29 Other disorders of kidney and ureter in diseases classified elsewhere; Q61.5 Medullary cystic kidney; M54.9 Dorsalgia, unspecified; G89.29 Other chronic pain; E83.59 Other disorders of calcium metabolism; Z87.442 Personal history of urinary calculi; Z90.49 Acquired absence of other specified parts of digestive tract; Z88.5 Allergy status to narcotic agent
CPT/HCPCS: 74176; 81001; 81025; 87086; 87088; 99283

== ENCOUNTER 2020-05-22 12:13 | Emergency (ER) | payer OTHER, MEDICAID, SELFPAY ==
[2020-05-22 12:14] VITALS: BP 159/112; PULSE 91; RESP 17; TEMP 36.3; O2SAT 97; BMI 37.2
--- NOTE | 2020-05-22 12:52 | US_ITS ---
STUDY: ULTRASOUND TRANSVAGINAL CLINICAL: Female, 39 years old. PELVIC PAIN, LLQ PAIN SINCE LAST NIGHT TECHNIQUE: Transvaginal COMPARISON: None. FINDINGS: Normal uterine size measuring 10.4 x 4.9 x 3.8 cm in maximal craniocaudal dimension. There are no myometrial masses. Normal endometrial thickness measuring 6.6 mm. There are no endometrial masses, and there is no fluid in the endometrial cavity. Normal uterine cervix. The ovaries are not visualized. There is no free fluid in the pelvis. US/Transvaginal Non- IMPRESSION: Unremarkable study. Electronically Signed: Lj Reyes, at 14:30 EDT Tel , Service support ,
--- NOTE | 2020-05-22 12:54 | CT_ITS ---
STUDY: CT ABDOMEN AND PELVIS WITHOUT CONTRAST REASON FOR EXAM: Female, 39 years old. PELVIC PAIN AND PRESSURE. Hx of medullary sponge kidneys. Prior cholecystectomy and csection x 3 RADIATION DOSAGE (If Supplied By Facility): CTDIvol = ( 14.32 ) mGy, DLP = ( 724.10 ) mGycm TECHNIQUE: Transaxial images were obtained from the dome of the diaphragm to the symphysis pubis without oral contrast, and without intravenous contrast. Sagittal and coronal images were reconstructed. Individualized dose optimization techniques were used for this CT. COMPARISON: 02/01/2020 FINDINGS: The visualized lung bases are unremarkable. The visualized portions of the heart are within normal limits. There again is a low-density lesion in the lateral aspect of the posterior segment of the right lobe of the liver measuring 4.5 x 3.8 cm unchanged in size since prior examination may represent cysts. Correlation with ultrasound might be of value. There are surgical clips in the gallbladder fossa consistent with a prior cholecystectomy. Normal spleen. Normal pancreas. Normal bilateral adrenal glands. Dense bilateral calcifications consistent with nephrocalcinosis and medullary sponge kidneys unchanged since prior exam. There is no evidence of hydronephrosis. Normal visualized stomach. Normal small intestine. The sigmoid colon is not well-distended. There is no evidence of acute diverticulitis. The appendix is visualized and appears normal. Normal abdominal aorta. Normal inferior vena cava. Normal retroperitoneum. Normal urinary bladder. There are metallic densities consistent with previous tubal ligation. Normal abdominal wall. There are degenerative changes in the lower lumbar spine at the level of L5-S1 with posterior degenerative spurs impinging on the thecal sac. CT/Abdomen/Pelvis without Cont IMPRESSION: 1. 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 No evidence of hydronephrosis. 2. Liver lesion unchanged likely representing cyst. 3. No evidence for acute diverticulitis or appendicitis. Electronically Signed: Lj Reyes, at 15:39 EDT Tel , Service support ,
--- NOTE | 2020-05-22 13:11 | ED.VISSUMM ---
- ER Visit Summary Date of Service: 05/22/20 Chief Complaint: Pelvic pain History of Present Illness: The patient is a 39 F presenting with pelvic pain. She states this started yesterday. She complains of mid pelvic pain. Denies possibility of . She states her last menstrual period ended yesterday. She has nausea with no vomiting. She denies urinary complaints. She has history of ovarian cyst and kidney stones. Previous cholecystectomy. She did not try medication prior to arrival. She states she is awaiting surgical consult for possible hysterectomy. Physical Examination: Vitals are stable. Patient is afebrile. Alert no acute distress. HEENT exam is unremarkable. Neck is supple. Lungs are clear and equal bilaterally. Heart is regular rate and rhythm. Abdomen is soft suprapubic tenderness, no rebound or guarding Pelvic: declined Extremities are unremarkable. Skin is warm and dry. Remainder of exam is unremarkable. Emergency Department Course and Treatment: Patient was given Toradol, Zofran IV. CBC, chemistries unremarkable. Urinalysis unremarkable. hCG negative. CT abdomen pelvis shows extensive bilateral nephrocalcinosis/medullary sponge kidneys unchanged since prior examination. No evidence of hydronephrosis. Liver lesion unchanged likely representing cyst. No evidence for acute diverticulitis or appendicitis. Pelvic ultrasound unremarkable study. On reevaluation, patient is resting comfortably. She is given prescription for naproxen and short course of Halma. 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 Advised return to ED for worsening complaints. Disposition: Discharge home Impression: Pelvic pain This note was generated with [employer] dictation software. It may contain incorrect words, spelling, and punctuation that were not noted in review of the chart prior to signing ED Disposition - Plan for ED Patient: Referrals: Vasile Casiano MD [Primary Care Provider] -
[2020-05-22] MEDS: 0.9% Normal Saline 1,000 ML 1000 ML IV (13:17)
[2020-05-22] MEDS: Ketorolac 30 MG/ML Syringe IV (13:18)
[2020-05-22] MEDS: Ondansetron 4 MG/2 ML Vial IV (13:18)
[2020-05-22 13:33] LABS: Mucous, Urine 0 SEEN /hpf (<or=2+); Red Blood Cells-Urine 0 SEEN /hpf (0-5); White Blood Cells 0 SEEN /hpf (0-5)
[2020-05-22 13:34] LABS: Absolute Lymphocyte Count 2.34 X10^3/uL (0.83-4.51); Absolute Neutrophil Count 5.9 X10^3/uL (2.0-7.7); Basophil# 0.07 X10^3/uL; Basophil% 0.8 % (0-1); Eosinophil# 0.09 X10^3/uL; Hematocrit 40.7 % (37-47); Hemoglobin 14.1 g/dL (12.0-15.0); Lymphocyte # 2.34 X10^3/ul (4.0); Lymphocyte % 26.1 % (19-41); Mean Corp Hgb Conc 34.6 g/dL (32-36); Mean Corpuscular Hgb 29.7 pg (27.0-32.0); Mean Corpuscular Volume 85.7 fL (81-99); Monocyte# 0.58 X10^3/uL; Monocyte% 6.5 % (0-10); NRBC Flagged by Analyzer 0 % (0-5); Neutrophil # 5.86 X10^3/uL (2.7-7.7); Neutrophil % 65.4 % (47-70); Platelet Count 338 K/mm3 (150-450); RBC Distribution Width CV 11.9 % (11.6-14.6); RBC Distribution Width SD 36.8 fl (35.1-43.9); Red Blood Count 4.75 M/mm3 (4.2-5.4)
[2020-05-22 13:36] LABS: Color, Urine Yellow (Yellow); Glucose, Dipstick Normal (Normal); Ketone-Dipstick Negative (Negative); Leukocyte Esterase-Dipstick Negative /ul (Negative); Nitrite-Dipstick Negative (Negative); Occult Blood-Urine Negative /ul (Negative); Protein-Dipstick Negative (Negative); Specific Gravity, Urine 1.015 (1.002-1.030); Urine Bilirubin Dipstick Negative (Negative); Urine Clarity Clear (Clear); Urine Urobilinogen Normal (Normal)
[2020-05-22 13:42] LABS: Bacteria RARE /hpf (None Seen); Squamous Epithelial Cells - UA 0-5 SEEN /hpf (5-10)
[2020-05-22 13:44] LABS: Internal QC Validated? YES +Cl - CLEAR BKGD; Pregnancy, Serum, hCG Quali. NEGATIVE Negative
[2020-05-22 13:47] LABS: Anion Gap 4 (5-15); BUN 14 mg/dL (7-18); BUN/Creat Ratio 14.9 RATIO (10-20); Chloride 108 mmol/L (98-107); Creatinine, Serum 0.94 mg/dL (0.55-1.02); EST Glomerular Filtration Rate 71 mL/min (>60); Est Glom Filt Rate - Afr Amer 86 mL/min (>60); Estimated Creatinine Clearance 64.81 ml/min; Glucose 92 mg/dL (74-106); Potassium 3.6 mmol/L (3.5-5.1); Sodium Level 141 mmol/L (136-145)
--- NOTE | 2020-05-22 16:26 | DCINST.ED_ITS ---
ED Disposition - Plan for ED Patient: Instructions: ED Pelvic Pain [facility] Prescriptions: Naproxen [Naprosyn] 500 mg PO BID PRN #20 tab Prescription Printed Hydrocodone Bitart/Apap 5-325 [[facility] 5MG-325MG] 1 tab PO Q6H PRN PRN 3 Days #10 tab PRN Reason: Pain Prescription Printed Referrals: Vasile Casiano MD [Primary Care Provider] - Lay Vargas CNM [Certified Nurse Corporate Development Manager] -
[2020-05-22 17:05] VITALS: BP 132/94; PULSE 81; RESP 16; O2SAT 99
== END 2020-05-22 17:07 | disposition home or self-care (01) ==
LOC: ED 13:22
PROVIDERS: Emergency Provider Emergency Medicine; PCP Family Medicine
DX: R10.2 Pelvic and perineal pain (principal); R10.9 Unspecified abdominal pain; R11.0 Nausea; E83.59 Other disorders of calcium metabolism; N29 Other disorders of kidney and ureter in diseases classified elsewhere; Z87.442 Personal history of urinary calculi; Z90.49 Acquired absence of other specified parts of digestive tract; Z72.0 Tobacco use
CPT/HCPCS: 74176; 76830; 80048; 81001; 84703; 85025; 99283; J7030; A4216; J2405

== ENCOUNTER 2021-04-30 09:02 | Emergency (ER) | payer OTHER, MEDICAID, SELFPAY ==
[2020-11-16 08:52] VITALS: BMI 38.7
[2021-04-30 09:03] VITALS: BP 148/104; PULSE 66; RESP 16; TEMP 36.4; O2SAT 98; BMI 38.7
--- NOTE | 2021-04-30 09:11 | ED.RN ---
DR. HOLCOMB MADE AWARE OF PT SX. REPORTS PT WILL BE SEEN.
--- NOTE | 2021-04-30 09:23 | EX.ED.DYSGE1 ---
HPI History of Present Illness Chief Complaint: Dizziness Informant: patient Onset/Context/Timing Onset: Yesterday Context: Gradual Onset Timing: Continuous Quality: Lightheaded Location: Head Worsened by: Nothing Relieved by: Nothing Narrative Narrative: Patient presents with dizziness and lightheadedness that began last night but became worse today. Patient states she was feeling somewhat lightheaded last night but was able to go to sleep. Patient states she woke up today and went to work. Patient states that while she was at work her lightheadedness became worse. Patient states she was having blurred vision and could not see where she was typing on the computer. Patient felt like she was having some palpitations where she felt like her heart was racing. Patient admits to some nausea but denies any vomiting. Patient states she was having some diarrhea yesterday as well. PFSH [facility] Medical History (Updated 04/30/21 @ 11:[address] Haroldo Wise, DO) Arthritis Bilateral plantar fasciitis Chronic neck and back pain Kidney disease Home Medications amoxicillin 875 mg-potassium clavulanate 125 mg tablet 1 tab PO BID #14 tab 11/16/20 [Rx Last Taken Unknown] Allergy/AdvReac Type Severity Reaction Status Date / Time morphine Allergy Itching Verified 04/30/21 09:02 TREE NUTS Allergy Unknown Uncoded 04/30/21 09:02 Family History (Updated 11/16/20 @ 09:14 by Cele Velasco) Other Cervical cancer Diabetes Ovarian cancer Pancreatic cancer Surgical History (Updated 11/16/20 @ 09:15 by Cele Velasco) H/O umbilical hernia repair History of History of cholecystectomy History of hysterectomy History of surgical removal of pilonidal cyst Social History (Updated 11/16/20 @ 09:33 by ANTONETTE Fabian) Smoking Status: Current every day smoker alcohol intake: never ROS ROS ED Constitutional Constitutional ED: Reports chills and subjective; Denies fever(s) Eyes Eyes: Reports blurry vision; Denies change in vision ENT ENT ED: Denies rhinorrhea or sore throat Cardiovascular Cardiovascular: Reports palpitations; Denies chest pain Respiratory/Chest Respiratory/Chest: Denies cough or dyspnea Gastrointestinal Gastrointestinal: Reports diarrhea and nausea; Denies vomiting Genitourinary Genitourinary ED: Denies dysuria or hematuria Musculoskeletal Musculoskeletal: Reports neck pain; Denies back pain Integumentary Denies abscess or rash Neurologic Neurologic: Reports headache(s) and weakness Allergic/Immunologic Allergic/Immunologic ED: Denies mouth swelling or urticaria EXAM Physical Exam Const Vital Signs: 04/30/21 09:03 04/30/21 10:04 Temperature 97.6 F L Temperature Source Temporal Pulse Rate 66 Pulse Rate [Lying] 54 L Pulse Rate [Standing] 65 Respiratory Rate 16 Blood Pressure 148/104 H Blood Pressure [Lying] 118/82 H Blood Pressure [Sitting] 118/81 H Blood Pressure [Standing] 124/91 H Blood Pressure Mean 118 Blood Pressure Mean [Lying] 94 Blood Pressure Mean [Sitting] 93 Blood Pressure Mean [Standing] 102 Pulse Ox 98 Oxygen Delivery Method Room Air Positive well nourished, well developed and obese General Appearance ED: well developed Nutritional Appearance: obese HEENT Reports moist mucous membranes Neck supple and no JVD Resp normal respiratory effort and clear to auscultation bilaterally Cardio regular rate, regular rhythm and no murmurs GI normal to inspection, nondistended, normoactive bowel sounds and non-tender Palpation: soft Extremity normal to inspection General Extremety ED: Negative for edema or tenderness General Extremity: Negative for edema Neuro oriented x3, CN's II-XII intact bilaterally and no sensory deficits noted Sensorium / Orientation: alert Motor Exam: strength 5/5 throughout Psych mental status grossly normal Skin no rashes or lesions noted MDM MDM MDM Narrative Medical decision making narrative: Orthostatic vital signs were obtained and were within normal limits. CBC was normal. Comprehensive metabolic profile was normal. Urinalysis does not show any evidence of urinary tract infection. CT scan of the brain was obtained. There is no acute intracranial abnormality. There is opacification of the left maxillary sinus. This was interpreted by the radiologist and reviewed by myself. Patient was given IV fluids, Reglan, and Benadryl.Patient is feeling better on reevaluation. Patient is feeling better on reevaluation. Patient was instructed to rest in a dark quiet room. Patient was instructed to drink plenty of fluids. Patient was instructed to follow-up with her primary care physician in 5 to 7 days. Patient understood and was agreeable with the plan. All questions were answered. Lab Data Attestation: I reviewed the patient's lab results. Labs: Laboratory Results - last 24 hr 04/30/21 04/30/21 04/30/21 09:30 09:30 10:20 WBC 6.7 RBC 4.79 Hgb 14.1 Hct 41.9 MCV 87.5 MCH 29.4 MCHC 33.7 RDW Std Deviation 38.0 RDW Coeff of Diana 11.8 Plt Count 270 MPV 9.4 Immature Gran % (Auto) 0.300 Neut % (Auto) 69.4 Lymph % (Auto) 22.3 [place] % (Auto) 6.3 Eos % (Auto) 0.9 Baso % (Auto) 0.8 Absolute Neuts (auto) 4.6 Absolute Lymphs (auto) 1.48 Nucleated RBC % 0 Sodium 139 Potassium 3.8 Chloride 104 Carbon Dioxide 27.0 Anion Gap 8 BUN 16 Creatinine 0.85 Estim Creat Clear Calc 70.98 Est GFR (MDRD) Af Amer 97 Est GFR (MDRD) Non-Af 80 BUN/Creatinine Ratio 18.9 Glucose 102 Calcium 8.8 Total Bilirubin 0.60 AST 12 L ALT 26 Alkaline Phosphatase 43 L Total Protein 7.2 Albumin 3.9 Globulin 3.3 Albumin/Globulin Ratio 1.2 Urine Color Yellow Urine Clarity Sl. Cloudy Urine pH 7.0 Ur Specific [place] 1.010 Urine Protein Negative Urine Glucose (UA) Normal Urine Ketones Negative Urine Occult Blood Negative Urine Nitrite Negative Urine Bilirubin Negative Urine Urobilinogen Normal Ur Leukocyte Esterase Negative Urine RBC 0 SEEN Urine WBC 0 SEEN Ur Squamous Epith Cells 0-5 SEEN Urine Bacteria 0 SEEN Urine Mucus 0 SEEN Radiography Diagnostic Testing: Radiology Impression Brain CT 04/30/21 09:55 IMPRESSION: Normal unenhanced CT scan of the brain. There is opacification of the left maxillary sinus. Electronically Signed: Vu Angeles MD at 10:08 EDT , Service support , Discharge Plan Triage Chief Complaint: Dizziness ED Provider: Haroldo Wise Dx/Rx/DC Orders Clinical Impression: Lightheadedness Instructions: ED Dizziness, Uncertain Cause Prescriptions: No Action amoxicillin-pot clavulanate 875-125 mg tablet 1 tab PO BID Qty: 14 RF: 0 Primary Care Provider: Vasile Casiano Referrals: Vasile Casiano MD [Primary Care Provider] - 5-7 Days Disposition Disposition: Home, Self Care
[2021-04-30] MEDS: DiphenhydrAMINE 50 MG/ML Syringe 25 MG IV (09:36)
[2021-04-30] MEDS: 0.9% Normal Saline 1,000 ML 1000 ML IV (09:36)
[2021-04-30] MEDS: Metoclopramide 10 MG/2 ML Vial IV (09:36)
[2021-04-30 09:39] LABS: Absolute Lymphocyte Count 1.48 X10^3/uL (0.83-4.51); Absolute Neutrophil Count 4.6 X10^3/uL (2.0-7.7); Basophil# 0.05 X10^3/uL; Basophil% 0.8 % (0-1); Eosinophil# 0.06 X10^3/uL; Eosinophils% 0.9 % (0-5); Hematocrit 41.9 % (37-47); Hemoglobin 14.1 g/dL (12.0-15.0); Lymphocyte # 1.48 X10^3/ul (0.83-4.51); Lymphocyte % 22.3 % (19-41); Mean Corp Hgb Conc 33.7 g/dL (32-36); Mean Corpuscular Hgb 29.4 pg (27.0-32.0); Mean Corpuscular Volume 87.5 fL (81-99); Mean Platelet Vol. 9.4 fl (6.2-12.0); Monocyte# 0.42 X10^3/uL; Monocyte% 6.3 % (0-10); NRBC Flagged by Analyzer 0 % (0-5); Neutrophil # 4.62 X10^3/uL (2.7-7.7); Neutrophil % 69.4 % (47-70); Platelet Count 270 K/mm3 (150-450); RBC Distribution Width CV 11.8 % (11.6-14.6); Red Blood Count 4.79 M/mm3 (4.2-5.4); White Blood Count 6.7 K/mm3 (4.4-11.0)
[2021-04-30 09:54] LABS: ALB/GLOB Ratio 1.2 RATIO (0.9-2.4); AST(SGOT) 12 U/L (15-37); Alanine Aminotransfer ALT/SGPT 26 U/L (13-56); Albumin, Serum 3.9 g/dL (3.2-5.0); Alkaline Phosphatase 43 U/L (45-117); Anion Gap 8 (5-15); BUN 16 mg/dL (7-18); BUN/Creat Ratio 18.9 RATIO (10-20); Calcium,Total 8.8 mg/dL (8.5-10.1); Chloride 104 mmol/L (98-107); Creatinine, Serum 0.85 mg/dL (0.55-1.02); EST Glomerular Filtration Rate 80 mL/min (>60); Est Glom Filt Rate - Afr Amer 97 mL/min (>60); Estimated Creatinine Clearance 70.98 ml/min; Globulin 3.3 g/dL (2.2-4.2); Glucose 102 mg/dL (74-106); Potassium 3.8 mmol/L (3.5-5.1); Protein, Total 7.2 g/dL (6.4-8.2); Sodium Level 139 mmol/L (136-145)
--- NOTE | 2021-04-30 09:55 | CT_ITS ---
STUDY: CT BRAIN WITHOUT CONTRAST REASON FOR EXAM: Female, 40 years old. Dizziness RADIATION DOSAGE (If Supplied By Facility): CTDIvol = ( 44.99 ) mGy, DLP = ( 762.36 ) mGycm TECHNIQUE: Transaxial CT imaging of the brain was performed without administration of intravenous contrast material. Individualized dose optimization techniques were used for this CT. COMPARISON: No relevant priors. FINDINGS: Normal soft tissue structures. Normal calvarium. Normal size ventricles and extra-axial spaces for the patient''s age. Normal white matter tracts of the cerebral hemispheres. Normal basal ganglia and thalami. Normal brainstem. Normal cerebellum. There is no intracranial hemorrhage. There are no findings of an acute ischemic infarction. Opacification of the left maxillary sinus. CT/Brain/Head without Contrast IMPRESSION: Normal unenhanced CT scan of the brain. There is opacification of the left maxillary sinus. Electronically Signed: Vu Angeles MD at 10:08 EDT , Service support ,
[2021-04-30 10:04] VITALS: BP 118/81; BP 118/82; BP 124/91; PULSE 54; PULSE 65
[2021-04-30 10:24] LABS: Bacteria 0 SEEN /hpf (None Seen); Mucous, Urine 0 SEEN /hpf (<or=2+); Red Blood Cells-Urine 0 SEEN /hpf (0-5); White Blood Cells 0 SEEN /hpf (0-5)
[2021-04-30 10:25] LABS: Color, Urine Yellow (Yellow); Glucose, Dipstick Normal (Normal); Ketone-Dipstick Negative (Negative); Leukocyte Esterase-Dipstick Negative /ul (Negative); Nitrite-Dipstick Negative (Negative); Occult Blood-Urine Negative /ul (Negative); Protein-Dipstick Negative (Negative); Urine Bilirubin Dipstick Negative (Negative); Urine Clarity Sl. Cloudy (Clear); Urine Urobilinogen Normal (Normal)
[2021-04-30 10:38] LABS: Squamous Epithelial Cells - UA 0-5 SEEN /hpf (5-10)
[2021-04-30 11:51] VITALS: BP 127/64; PULSE 63; RESP 16; O2SAT 97
== END 2021-04-30 11:51 | disposition home or self-care (01) ==
PROVIDERS: Emergency Provider Emergency Medicine; PCP Family Medicine
DX: R42 Dizziness and giddiness (principal); F17.200 Nicotine dependence, unspecified, uncomplicated; M54.9 Dorsalgia, unspecified; M54.2 Cervicalgia; G89.29 Other chronic pain; R11.0 Nausea; M19.90 Unspecified osteoarthritis, unspecified site
CPT/HCPCS: 70450; 80053; 81001; 85025; 96361; 96374; 96375; 99285; A4216

== ENCOUNTER 2023-02-10 15:16 | Outpatient (RCR) | payer BC, MEDICAID, SELFPAY | END 2023-03-02 23:59 | LOC: NS 15:16 | PROVIDERS: PCP Internal Medicine; Referring Provider Nurse Practitioner; Visit Provider Nurse Practitioner | DX: Z71.3 Dietary counseling and surveillance (principal); E66.01 Morbid (severe) obesity due to excess calories; Z68.41 Body mass index [BMI] 40.0-44.9, adult | CPT/HCPCS: 97802 ==

== ENCOUNTER 2023-03-09 15:18 | Outpatient (RCR) | payer BC, MEDICAID, SELFPAY | END 2023-04-01 23:59 | LOC: NS 15:18 | PROVIDERS: PCP Internal Medicine; Referring Provider Nurse Practitioner; Visit Provider Nurse Practitioner | DX: Z71.3 Dietary counseling and surveillance (principal); E66.01 Morbid (severe) obesity due to excess calories; Z68.41 Body mass index [BMI] 40.0-44.9, adult | CPT/HCPCS: 97803 ==

== ENCOUNTER 2023-03-10 06:43 | Emergency (ER) | payer BC, MEDICAID, SELFPAY ==
[2023-03-10 06:43] VITALS: BP 187/96; PULSE 78; RESP 17; TEMP 36.1; O2SAT 98; BMI 42.9
--- NOTE | 2023-03-10 07:15 | CT_ITS ---
STUDY: CT ABDOMEN AND PELVIS WITH CONTRAST REASON FOR EXAM: Female, 42 years old. RLQ pain with nausea and constipation. RADIATION DOSAGE (If Supplied By Facility): CTDIvol = ( 19.37 ) mGy, DLP = ( 1986.09 ) mGycm TECHNIQUE: Transaxial images were obtained from the dome of the diaphragm to the symphysis pubis without oral contrast. IV 100mL Isovue-300 was administered. Sagittal and coronal images were reconstructed. Individualized dose optimization techniques were used for this CT. COMPARISON: Comparison is made with prior study May 22, 2020. FINDINGS: The visualized lung bases are unremarkable. The visualized portions of the heart are within normal limits. There is a 3.6 x 5 cm hypodensity with peripheral enhancement and collateral multiple appearance suggestive of an hemangioma in the lateral aspect of the right lobe of the liver. This is unchanged. There are surgical clips in the gallbladder fossa consistent with a prior cholecystectomy. Normal spleen. Normal pancreas. Normal bilateral adrenal glands. Dense bilateral calcifications in the kidneys bilaterally with nephrocalcinosis. Moderate left hydronephrosis and proximal left hydroureter due to a 6.8 mm calculus in the proximal portion of the left ureter. Normal visualized stomach. Normal small intestine. There are scattered colonic diverticula consistent with diverticulosis. The appendix is visualized and appears normal. Normal abdominal aorta. Normal inferior vena cava. Normal retroperitoneum. Normal urinary bladder. There is absence of the uterus consistent with a prior hysterectomy. 2 cm cyst in the right. Normal abdominal wall. This space narrowing and disc degeneration at the L5-S1 level. CT/Abdomen/Pelvis W IV Cont ONLY IMPRESSION: 6.8 mm calculus in the proximal portion of the left ureter is a left hydronephrosis and proximal left hydroureter. Stable dense calcification in both kidneys incomplete with nephrocalcinosis. Stable hypodensity in the right lobe of the liver suggestive of a hemangioma. Sigmoid diverticulosis. Electronically Signed: Vu Angeles MD at 8:24 EDT ,
--- NOTE | 2023-03-10 07:16 | EDS_ITS ---
HPI HPI - GI History of Present Illness Chief Complaint: Abd Pain Informant: patient Abdominal Pain/Flank Pain Onset: Yesterday Context: Gradual Onset Timing: Continuous Quality: Sharp Location: RLQ Current Severity: Severe Maximum Severity: Severe Worsened by: Car ride and Movement Relieved by: Nothing Nausea/Vomiting/Emesis GI Symptom: Positive for Nausea; Negative for Vomiting Diarrhea/Melena/Hematochezia GI Symptom: Negative for Melena or Hematochezia Associated Symptoms Associated Symptoms: Negative for Dysuria, Frequency, Hematuria or Urgency Narrative Narrative: 42-year-old female gradual onset right lower quadrant pain, progressive and worsening and not colicky. Has a history of kidney stones due to medullary sponge kidney, states she has been passing kidney stones for the last several weeks, more than usual, and states this is a uniquely different pain. It has not been intermittent. She has constant back discomfort related to her kidneys according to her, she states that is no worse than usual or different lately. However since she has had the abdominal discomfort, she has been nauseated no vomiting no fevers or chills. She states she has felt constipated lately, but in asking more details she has had hard stools but has been going, the last one was last night after the pain started and the pain was no better afterwards and in fact, bearing down makes the pain worse. No urinary symptoms. She had multiple abdominal surgeries none of them are recent. She had a hysterectomy but still has her ovaries. [facility] Medical History (Updated 03/10/23 @ 11:[address] Leo Hernandez MD) Arthritis Bilateral plantar fasciitis Chronic neck and back pain Kidney disease Kidney stone Medullary sponge kidney Ovarian cyst Home Medications dicyclomine 10 mg capsule 20 mg PO Q6H PRN abdominal pain #20 CAPSULES 03/10/23 [Rx Last Taken Unknown] ondansetron 4 mg disintegrating tablet 8 mg PO Q8H PRN PRN Nausea #20 tabs 03/10/23 [Rx Last Taken Unknown] phentermine 30 mg capsule 30 mg PO DAILY 03/10/23 [History Last Taken Unknown] potassium citrate 10 mEq (1,080 mg) tablet,extended release 10 meq PO TID 03/10/23 [History Last Taken Unknown] Allergy/AdvReac Type Severity Reaction Status Date / Time morphine Allergy Itching Verified 03/10/23 06:47 tree nut Allergy NEEDS Verified 03/10/23 06:47 FOLLOW-UP Family History (Updated 11/16/20 @ 09:14 by Cele Velasco) Other Cervical cancer Diabetes Ovarian cancer Pancreatic cancer Surgical History (Updated 03/10/23 @ 07:[address] Leo Hernandez MD) H/O umbilical hernia repair History of History of hysterectomy History of surgical removal of pilonidal cyst Hx of cholecystectomy Social History Smoking Status: Former smoker alcohol intake: never ROS ROS ED Constitutional Constitutional ED: Reports anorexia; Denies chills or fever(s) Eyes Eyes: Denies change in vision or diplopia ENT ENT ED: Denies rhinorrhea or sore throat Cardiovascular Cardiovascular: Denies chest pain or palpitations Respiratory/Chest Respiratory/Chest: Denies cough or dyspnea Gastrointestinal Gastrointestinal: Reports abdominal pain, constipation, diarrhea and nausea; Denies melena or vomiting Genitourinary Genitourinary ED: Denies dysuria or hematuria Musculoskeletal Musculoskeletal: Reports back pain; Denies neck pain Integumentary Denies abscess or rash Neurologic Neurologic: Denies headache(s), paresthesias or weakness Psychiatric Psychiatric: Denies anxiety or suicidal thoughts EXAM Physical Exam Const Vital Signs: 03/10/23 06:43 Temperature 97 F L Temperature Source Temporal Pulse Rate 78 Respiratory Rate 17 Blood Pressure 187/96 H Blood Pressure Mean 126 Pulse Ox 98 Oxygen Delivery Method Room Air Positive well nourished and well developed General Appearance ED: well developed and NAD HEENT Reports moist mucous membranes normocephalic and atraumatic Eyes PERRL and EOMs intact bilaterally Neck full ROM and supple Resp normal respiratory effort and clear to auscultation bilaterally Cardio regular rate, regular rhythm and no murmurs GI non-distended GI Narrative: Very tender in the distal right lower quadrant, but also tender in the area surrounding it including McBurney's point, without guarding or rebound tenderness. Positive Rovsing, obturator, psoas signs. Negative Rudolph. Significant abdominal obesity does limit the exam somewhat. Normal inspection with well-healed abdominal surgical scars without any signs of erythema/ecchymosis, no palpable hernias. Auscultation: hypoactive bowel sounds Palpation: soft Back/Spine no CVA tenderness General Back: other FROM Extremity normal to inspection General Extremety ED: Negative for edema, pulses abnormal or tenderness General Extremity: Negative for edema or pulses abnormal Neuro oriented x3, CN's II-XII intact bilaterally and no sensory deficits noted Sensorium / Orientation: awake and alert Motor Exam: strength 5/5 throughout Psych mental status grossly normal and thought process normal Skin no rashes or lesions noted and no wounds MDM MDM MDM Narrative Medical decision making narrative: Given the details of the history this does not sound like colonic spasm simply due to constipation. My concern is that could she could be developing appendicitis, since she is not vomiting it is less likely a bowel obstruction although that is in the differential to with the multiple surgeries she has had including an umbilical herniorrhaphy, so given all of this a CT is indicated along with labs, she was treated with fentanyl since she has a sensitivity to morphine/histamine release, and Zofran as well as IV fluids. labs are unremarkable, urinalysis does show indicators of infection and pyuria, however she has no urinary symptoms I sent it for culture and would not necessarily treat it unless the culture returns positive. The CT images were reviewed, I reviewed the interpretation of the radiologist and I agree with it. Basically a left ureteral stone and hydronephrosis, she has no symptoms in that area right now and she states she is very used to kidney stones passing, and no thing acute on the right side. Therefore to be more comprehensive I recommended getting a transvaginal ultrasound to look at her ovaries, she was amenable to that and I looked at those images and interpretation which I agree with as well, basically negative for anything major, normal blood flow, no masses, abdominal follicle no signs of a ruptured or hemorrhagic cyst. Given all this, I think the constipation may actually be related and this is functional discomfort, I see no significant pathology on imaging and her white blood count of 6.8 with no leftward shift or trend toward it. Supportive care advised, and I recommend using MiraLAX to treat constipation which we discussed she has that at home. She will follow-up she is comfortable with that plan. Lab Data Attestation: I reviewed the patient's lab results. Labs: Laboratory Results - last 24 hr 03/10/23 03/10/23 03/10/23 06:50 06:50 06:55 WBC 6.8 RBC 4.62 Hgb 14.0 Hct 39.9 MCV 86.4 MCH 30.3 MCHC 35.1 RDW Std Deviation 37.2 RDW Coeff of Diana 11.9 Plt Count 312 MPV 9.8 Immature Gran % (Auto) 0.100 Neut % (Auto) 56.5 Lymph % (Auto) 32.6 [place] % (Auto) 7.7 Eos % (Auto) 1.9 Baso % (Auto) 1.2 H Absolute Neuts (auto) 3.8 Absolute Lymphs (auto) 2.21 Nucleated RBC % 0 Sodium 141 Potassium 3.8 Chloride 106 Carbon Dioxide 30.0 Anion Gap 5 BUN 18 Creatinine 1.12 H Estim Creat Clear Calc 52.81 Est GFR (MDRD) Af Amer 69 Est GFR (MDRD) Non-Af 57 L BUN/Creatinine Ratio 16.1 Glucose 111 H Calcium 9.1 Urine Color Yellow Urine Clarity Sl. Cloudy Urine pH 6.5 Ur Specific [place] 1.015 Urine Protein 15 H Urine Glucose (UA) Normal Urine Ketones Negative Urine Occult Blood Negative Urine Nitrite Negative Urine Bilirubin Negative Urine Urobilinogen Normal Ur Leukocyte Esterase 100 H Urine RBC 0 SEEN Urine WBC 10-25 SEEN Ur Squamous Epith Cells 0-5 SEEN Urine Bacteria 1+ Urine Mucus 0 SEEN Radiography Diagnostic Testing: Clinical Impression(s) from Imaging Studies Abdomen/Pelvis CT 03/10/23 07:15 IMPRESSION: 6.8 mm calculus in the proximal portion of the left ureter is a left hydronephrosis and proximal left hydroureter. Stable dense calcification in both kidneys incomplete with nephrocalcinosis. Stable hypodensity in the right lobe of the liver suggestive of a hemangioma. Sigmoid diverticulosis. Electronically Signed: Vu Angeles MD at 8:24 EDT , Transvaginal US 03/10/23 09:18 IMPRESSION: Dominant follicle within the right ovary measuring 1.7 cm x 1.5 cm. Electronically Signed: Vu Angeles MD at 10:03 EDT , Discharge Plan Triage Chief Complaint: Abd Pain ED Provider: Leo Hernandez Dx/Rx/DC Orders Clinical Impression: Abdominal pain, right lower quadrant, Ureterolithiasis, Constipation Instructions: Abdominal Pain, ED Constipation (Adult) Prescriptions: New dicyclomine 10 mg capsule 20 mg PO Q6H PRN (Reason: abdominal pain) Qty: 20 0RF ondansetron [ondansetron] 4 mg tablet,disintegrating 8 mg PO Q8H PRN PRN (Reason: Nausea) Qty: 20 0RF No Action phentermine 30 mg capsule 30 mg PO DAILY Label Comments: TAKE 1 CAPSULE BY MOUTH ONCE DAILY potassium citrate 10 mEq (1,080 mg) tablet extended release 10 meq PO TID Primary Care Provider: Yasmani Diaz Referrals: Yasmani Diaz MD [Primary Care Provider] - 3-5 Days if not improving Disposition Disposition: Home, Self Care
[2023-03-10 07:23] LABS: Mucous, Urine 0 SEEN /hpf (<or=2+); Red Blood Cells-Urine 0 SEEN /hpf (0-5)
[2023-03-10 07:25] LABS: Absolute Lymphocyte Count 2.21 X10^3/uL (0.83-4.51); Absolute Neutrophil Count 3.8 X10^3/uL (2.0-7.7); Basophil# 0.08 X10^3/uL; Basophil% 1.2 % (0-1); Eosinophil# 0.13 X10^3/uL; Eosinophils% 1.9 % (0-5); Hematocrit 39.9 % (37-47); Lymphocyte # 2.21 X10^3/ul (0.83-4.51); Lymphocyte % 32.6 % (19-41); Mean Corp Hgb Conc 35.1 g/dL (32-36); Mean Corpuscular Hgb 30.3 pg (27.0-32.0); Mean Corpuscular Volume 86.4 fL (81-99); Mean Platelet Vol. 9.8 fl (6.2-12.0); Monocyte# 0.52 X10^3/uL; Monocyte% 7.7 % (0-10); NRBC Flagged by Analyzer 0 % (0-5); Neutrophil # 3.83 X10^3/uL (2.7-7.7); Neutrophil % 56.5 % (47-70); Platelet Count 312 K/mm3 (150-450); RBC Distribution Width CV 11.9 % (11.6-14.6); RBC Distribution Width SD 37.2 fl (35.1-43.9); Red Blood Count 4.62 M/mm3 (4.2-5.4); White Blood Count 6.8 K/mm3 (4.4-11.0)
[2023-03-10] MEDS: Ondansetron 4 MG/2 ML Vial IV (07:25)
[2023-03-10] MEDS: 0.9% Normal Saline 1,000 ML 1000 ML IV (07:25)
[2023-03-10] MEDS: fentaNYL 100 MCG/2 ML Ampul 50 MCG IV (07:25)
[2023-03-10 07:37] LABS: Anion Gap 5 (5-15); BUN 18 mg/dL (7-18); BUN/Creat Ratio 16.1 RATIO (10-20); Calcium,Total 9.1 mg/dL (8.5-10.1); Chloride 106 mmol/L (98-107); Creatinine, Serum 1.12 mg/dL (0.55-1.02); EST Glomerular Filtration Rate 57 mL/min (>60); Est Glom Filt Rate - Afr Amer 69 mL/min (>60); Estimated Creatinine Clearance 52.81 ml/min; Glucose 111 mg/dL (74-106); Potassium 3.8 mmol/L (3.5-5.1); Sodium Level 141 mmol/L (136-145)
[2023-03-10 08:08] LABS: Color, Urine Yellow (Yellow); Glucose, Dipstick Normal (Normal); Ketone-Dipstick Negative (Negative); Leukocyte Esterase-Dipstick 100 /ul (Negative); Nitrite-Dipstick Negative (Negative); Occult Blood-Urine Negative /ul (Negative); Protein-Dipstick 15 mg/dl (Negative); Specific Gravity, Urine 1.015 (1.002-1.030); Urine Bilirubin Dipstick Negative (Negative); Urine Clarity Sl. Cloudy (Clear); Urine Urobilinogen Normal (Normal); Urine pH 6.5 (5.0 - 8.0)
[2023-03-10 08:22] LABS: Bacteria 1+ /hpf (None Seen); Squamous Epithelial Cells - UA 0-5 SEEN /hpf (5-10); White Blood Cells 10-25 SEEN /hpf (0-5)
--- NOTE | 2023-03-10 09:18 | US_ITS ---
STUDY: ULTRASOUND OF THE FEMALE PELVIS - COMPLETE REASON FOR EXAM: Female, 42 years old. RLQ pain LMP: Prior hysterectomy. TECHNIQUE: Transvaginal TECHNICAL QUALITY: Adequate. COMPARISON: Comparison is made with prior ultrasound examination May 22, 2025 CT scan of the abdomen and pelvis in earlier today. FINDINGS: The patient is status post hysterectomy. The right ovary is visualized. The right ovary measures 2.8 cm x 2.7 cm x 3.5 cm. A dominant follicle is seen within the ovary measuring 1.7 cm x 1.5 cm. There is no visualized right adnexal mass or complex lesion. There is normal arterial and normal venous vascularity. The left ovary is visualized. The left ovary measures 2.3 cm x 1.9 cm x 2.2 cm. There is no left ovarian cyst or ovarian mass. There is no visualized left adnexal mass or complex lesion. There is normal arterial and normal venous vascularity. There is no fluid in the cul-de-sac. US/Transvaginal Non- IMPRESSION: Dominant follicle within the right ovary measuring 1.7 cm x 1.5 cm. Electronically Signed: Vu Angeles MD at 10:03 EDT ,
[2023-03-10 11:26] VITALS: BP 123/91
== END 2023-03-10 11:27 | disposition home or self-care (01) ==
PROVIDERS: Emergency Provider Emergency Medicine; PCP Internal Medicine; Visit Provider Emergency Medicine
DX: R10.31 Right lower quadrant pain (principal); K59.00 Constipation, unspecified; Z87.891 Personal history of nicotine dependence; N20.1 Calculus of ureter; Z90.710 Acquired absence of both cervix and uterus; Z90.49 Acquired absence of other specified parts of digestive tract
CPT/HCPCS: 74177; 76830; 80048; 81001; 85025; 87086; 87088; 93976; 99283; J7030; Q9967; A4216; J2405

== ENCOUNTER → 2023-03-21 | Outpatient (CLI) | payer BC, MEDICAID, SELFPAY ==
--- NOTE | 2023-03-21 16:57 | US_ITS ---
INDICATION: ABDOMINAL PAIN EXAMINATION: Ultrasound US Kidney(s) complete (eg, kidneys and bladder) TECHNIQUE: Hyde scale and color doppler images were obtained of the kidneys. COMPARISON: CT abdomen and pelvis 03/10/2023 FINDINGS: RIGHT KIDNEY: 11.5 cm length. There is no hydronephrosis. Echogenic pyramids with shadowing consistent with nephrocalcinosis. LEFT KIDNEY: 12.7 cm length. There is mild hydronephrosis. Degree of hydronephrosis appears relatively decreased compared to the recent CT, although difficult to compare. Echogenic pyramids with shadowing consistent with nephrocalcinosis. URINARY BLADDER: Mildly distended. Bladder volume 58 mL. Postvoid volume less than 1 mL. Ureteral jets were visualized. US/Kidney and Bladder IMPRESSION: Mild left hydronephrosis, appears relatively decreased compared to prior CT. No hydronephrosis on the right. 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 Electronically Signed: Alba Cutler MD at 18:30 EDT ,
== END | disposition home or self-care (01) ==
LOC: US 16:56
PROVIDERS: PCP Internal Medicine; Referring Provider Internal Medicine Nephrology
DX: R10.9 Unspecified abdominal pain (principal)
CPT/HCPCS: 76770

== ENCOUNTER 2023-04-06 15:22 | Outpatient (RCR) | payer BC, MEDICAID, SELFPAY | END 2023-05-02 23:59 | LOC: NS 15:22 | PROVIDERS: PCP Internal Medicine; Referring Provider Nurse Practitioner; Visit Provider Nurse Practitioner | DX: Z71.3 Dietary counseling and surveillance (principal); E66.01 Morbid (severe) obesity due to excess calories; Z68.41 Body mass index [BMI] 40.0-44.9, adult | CPT/HCPCS: 97803 ==